=== PATIENT | male | born 1955 | race Caucasian/White ===

== ENCOUNTER → 2020-08-14 | Outpatient (CLI) | payer OTHER ==
[~2020-08-14] MED LIST: ASPIRIN EC81 MG PO; ATORVASTATIN CA20 MG PO; BACTRIM DS TAB1 EACH PO; BETADINE30 ML TOP; BETADINE946 ML TOP; CEFUROXIME500 MG PO; CLEOCIN HCL300 MG PO; CLOPIDOGREL75 MG PO; COLCHICINE0.6 M1 PO; DESYREL 50 MG T50 MG PO; FLEXERIL 10 MG10 MG PO; GABAPENTIN300 MG PO; GLUCOPHAGE1000 MG PO; GLUCOTROL 10 MG10 MG PO; LEVAQUIN500 MG PO; LEVAQUIN750 MG PO; OMEPRAZOLE40 MG PO; PAXIL20 MG PO; PERCOCET 5/325 T1 EA PO; VITAMIN C 500500 MG PO; ZESTRIL40 MG PO; ZYLOPRIM 300 M300 MG PO
== END ==
LOC: KOH-I 08:00
DX: M93.272 Osteochondritis dissecans, left ankle and joints of left foot (principal)
CPT/HCPCS: 73721

== ENCOUNTER 2020-09-01 06:35 | Emergency (ER) | payer OTHER ==
[~2020-09-01 06:35] MED LIST changes: -COLCHICINE0.6 M1 PO
[2020-09-01 07:34] LABS: HEMOGLOBIN 13.1 gm/dl (14.0-17.5); RED BLOOD COUNT 4.51 M/UL (4.20-5.50); WHITE BLOOD COUNT 7.2 K/UL (4.5-11.0)
[2020-09-01] MEDS ORDERED: COLCHICINE0.6 M1 PO (09:12)
== END 2020-09-01 09:20 | disposition home or self-care (01) ==
LOC: ER1 06:35
PROVIDERS: Emergency Medicine
DX: M25.562 Pain in left knee (principal); R26.2 Difficulty in walking, not elsewhere classified; I10 Essential (primary) hypertension; E11.9 Type 2 diabetes mellitus without complications
CPT/HCPCS: 73564; 80053; 84550; 85025; 85652; 86140; 87040; 99283

== ENCOUNTER → 2020-12-04 | Outpatient (CLI) | payer OTHER ==
[~2020-12-04] MED LIST changes: +COLCHICINE0.6 M1 PO
== END ==
LOC: HEART 5 10:00
DX: I10 Essential (primary) hypertension (principal); I45.10 Unspecified right bundle-branch block
CPT/HCPCS: 93306

== ENCOUNTER → 2021-03-19 | Outpatient (CLI) | payer OTHER | LOC: KOH-I 09:32 | DX: M79.671 Pain in right foot (principal) | CPT/HCPCS: 73630 ==

== ENCOUNTER → 2021-05-07 | Outpatient (CLI) | payer OTHER | LOC: HEART 5 08:52 | DX: R07.9 Chest pain, unspecified (principal) | CPT/HCPCS: 78452; A9502; J2785 ==